=== PATIENT | female | born 1955 | race Caucasian/White ===

== ENCOUNTER 2020-01-09 20:49 | Outpatient (REF) | payer MEDICAID, SELFPAY ==
[2020-01-09 20:55] LABS: Abs Immature Grans 0.02 k/cumm (0.0-0.09); Absolute Basophil Count 0.03 k/cumm (0.0-0.2); Absolute Eosinophil Count 0.07 k/cumm (0.0-0.7); Absolute Monocyte Count 0.46 k/cumm (0.11-0.7); Absolute Neutrophil Count 3.41 k/cumm (1.2-6.7); Basophils % 0.5; Eosinophils % 1.2; HCT 39.6 % (36.0-46.0); HGB 12.7 g/dL (12.0-15.5); Immature Grans % 0.4 %; Lymphocytes % 29.9; Mean Corp. HGB Concentration 32.1 g/dL (32.0-36.0); Mean Corpuscular Hemoglobin 31.2 pg (27.0-33.0); Mean Corpuscular Volume 97.3 fL (80-95); Mean Platelet Volume 9.7 fL (8.0-11.0); Monocytes % 8.1; Neutrophils % 59.9; Platelet Count 518 x1000/uL (130-400); RBC 4.07 m/cumm (4.00-5.20); RBC Distribution Width 13.4 % (11.7-14.6); White Blood Cell Count 5.69 k/cumm (4.4-10.8)
[2020-01-09 21:24] LABS: Vitamin D 25 Total 37.8 ng/ml (30-100)
[2020-01-09 21:27] LABS: ALT 37 U/L (14-59); AST 28 U/L (15-37); Albumin 3.7 g/dL (3.4-5.0); Alkaline Phosphatase 161 U/L (46-116); Anion Gap 10.1 mmol/L (3-11); BUN 14 mg/dL (7-18); Bilirubin, Total 0.2 mg/dL (0.2-1.0); CO2 25.9 mmol/L (21.0-32.0); CREATININE 0.82 mg/dL (0.55-1.02); Calcium 8.7 mg/dL (8.5-10.1); Chloride 104 mmol/L (98-107); Ferritin 189 ng/mL (8-252); Folate 18.7 ng/mL (8.6-20.0); Glucose 91 mg/dL (74-106); Potassium 4.6 mmol/L (3.5-5.1); Sodium 140 mmol/L (136-145); Total Protein 7.2 g/dL (6.4-8.2); Vitamin B12 476 pg/mL (193-986)
== END 2020-01-09 21:09 ==
LOC: NCHCN 20:49
PROVIDERS: PCP Family Medicine; Visit Provider Family Medicine
DX: F10.20 Alcohol dependence, uncomplicated (principal)
CPT/HCPCS: 80053; 82306; 82607; 82728; 82746; 85025

== ENCOUNTER 2020-11-16 11:57 | Outpatient (REF) | payer MEDICAID, SELFPAY ==
[2020-11-16 21:41] LABS: Hemoglobin A1C 6.2 % (<5.7)
[2020-11-16 21:54] LABS: GGT 31 U/L (5-55); TSH 0.81 uIU/mL (0.36-3.74)
[2020-11-17 17:06] LABS: Osmolality, Urine 440 mOsm/kg (150-1,150)
== END 2020-11-16 11:58 | disposition home or self-care (01) ==
LOC: NCHCN 11:57
PROVIDERS: PCP Family Medicine; Visit Provider Nurse Practitioner Community Health
DX: R63.5 Abnormal weight gain (principal); R60.9 Edema, unspecified; L65.9 Nonscarring hair loss, unspecified; R73.09 Other abnormal glucose
CPT/HCPCS: 83935; 82977; 83036; 84133; 84300; 84443